=== PATIENT | female | born 1970 | race Hispanic/Latino ===

== ENCOUNTER 2016-11-07 10:20 | Emergency (ER) | payer OTHER ==
[2016-11-07 10:23] VITALS: BMI 42.9
[2016-11-07 10:29] VITALS: RESP 18; TEMP 97.8
[2016-11-07] MEDS ORDERED: Sodium Chloride 0.9% 1,000 ML IV STA (10:52)
--- NOTE | 2016-11-07 10:52 | ED PDOC ---
Arrival/HPI - General Historian: Patient - History of Present Illness Time/Duration: 1 week Symptom Course: Unchanged, Worsening Quality: Other Context: Home - General Chief Complaint: Back Pain Time Seen by Provider: 11/07/16 10:47 - History of Present Illness Narrative History of Present Illness (Text): 11/07/16 10:48 A 46 year old female, whose past medical history includes kidney stones 2 years ago, presents to the emergency department complaining of left lower back pain for 1 week. Patient states she was seen by her PMD last week and started on Cipro to treat a UTI. Patient has been compliant with medication, with no relief. She reports her symptoms have worsened since. Patient notes generalized weakness and fatigue but denies any fever, chills, nausea, vomiting, diarrhea, abdominal pain, urinary symptoms, chest pain, shortness of breath or any other complaints. (Lorna Olmos) Past Medical History - Provider Review Nursing Documentation Reviewed: Yes - Infectious Disease Hx of Infectious Diseases: None - Tetanus Immunization Tetanus Immunization: Unknown - Past Medical History Past Medical History: No Previous - Cardiac Hx Cardiac Disorders: Yes Hx Angina: No Hx Cardiac Arrhythmia: No Hx Circulatory Problems: No Hx Congestive Heart Failure: No Hx Heart Murmur: No Hx Heart Transplant: No Hx Hypertension: Yes Hx Internal Defibrillator: No Hx Mitral Valve Prolapse: No Hx Pacemaker: No Hx Peripheral Edema: No Hx Peripheral Vascular Disease: No - Pulmonary Hx Respiratory Disorders: Yes Hx Asthma: No Hx Bronchitis: Yes Hx Chronic Obstructive Pulmonary Disease (COPD): No Hx Emphysema: No Hx Pneumonia: No Hx Respiratory Aspiration: No Hx Respiratory Tract Infection: No Hx Sleep Apnea: No Hx Tuberculosis: No - Neurological Hx Neurological Disorder: Yes Hx Alzheimer's Disease: No HX Cerebrovascular Accident: No Hx Dementia: No Hx Dizziness: No Hx Meningitis: No Hx Migraine: No Hx Parkinson's Disease: No Hx Seizures: No Hx Transient Ischemic Attacks (TIA): No - HEENT Hx HEENT Disorder: Yes Hx Blind: No Hx Cataracts: No Hx Deafness: Yes (slight hearing loss) Hx Difficulty Chewing: No Hx Epistaxis: No Hx Glaucoma: No Hx Macular Degeneration: No - Renal Hx Renal Disorder: Yes Hx Dialysis: No Hx Kidney Stones: Yes (HAD KIDNEY STENT PLACED AND REMOVED) Hx Neurogenic Bladder: No Hx Pyelonephritis: No Hx Renal Cancer: No Hx Renal Failure: No - Endocrine/Metabolic Hx Endocrine Disorders: No Hx Adrenal Cancer: No Hx Diabetes Insipidus: No Hx Diabetes Mellitus Type 1: No Hx Diabetes Mellitus Type 2: No Hx Hyperthyroidism: No Hx Hypothyroidism: No Hx Systemic Lupus Erythematosus: No - Hematological/Oncological Hx Blood Disorders: No Hx AIDS: No Hx Anemia: No Hx Cancer: No Hx Chemotherapy: No Hx Cirrhosis: No Hx Hemophilia: No Hx Hepatitis A: No Hx Hepatitis B: No Hx Hepatitis C: No Hx Metastasis: No Hx Shingles: No Hx Sickle Cell Disease: No Hx Unexplained Bleeding: No - Integumentary Hx Dermatological Disorder: Yes (skin rashes) Hx Basal Cell Carcinoma: No Hx Eczema: No Hx Melanoma: No Hx Psoriasis: No Hx Squamous Cell Carcinoma: No - Musculoskeletal/Rheumatological Hx Musculoskeletal Disorders: No Hx Arthritis: No Hx Back Pain: No Hx Degenerative Joint Disease: No Hx Falls: No Hx Fractures: No Hx Gout: No Hx Herniated Disk: No Hx Myasthenia Gravis: No Hx Osteoarthritis: No Hx Osteomyelitis: No Hx Osteoporosis: No Hx Rhabdomyolysis: No Hx Spinal Stenosis: No Hx Unsteady Gait: No - Gastrointestinal Hx Gastrointestinal Disorders: Yes Hx Colostomy: No Hx Crohn's Disease: No Hx Diverticulitis: No Hx Gall Bladder Disease: Yes (CHOLECYSTECTOMY) Hx Gastroesophageal Reflux: No Hx Gastrointestinal Ulcer: No Hx Ileostomy: No Hx Liver Failure: No Hx Pancreatitis: No HX Swallowing Problems: No - Genitourinary/Gynecological Hx Genitourinary Disorders: Yes Hx Hematuria: Yes (current) Hx Incontinence: No Hx Prostate Problems: No Hx Sexually Transmitted Diseases: No Hx Urinary Tract Infection: Yes - Psychiatric Hx Psychophysiologic Disorder: Yes Hx Anxiety: Yes Hx Bipolar Disorder: No Hx Depression: Yes Hx Emotional Abuse: No Hx Hallucinations: No Hx Panic Disorder: Yes Hx Post Traumatic Stress Disorder: No Hx Psychosis: No Hx Physical Abuse: No Hx Schizophrenia: No Hx Sexual Abuse: No Hx Substance Use: No Other/Comment: SMOKES CIGARETTES - Past Surgical History Past Surgical History: No Previous - Surgical History Hx Amputation: No Hx Appendectomy: Yes Hx Cardiac Catheterization: No Hx Cholecystectomy: Yes Hx Coronary Stent: No Hx Gastric Bypass Surgery: No Hx Hysterectomy: No Hx Joint Replacement: No Hx Kidney Transplant: No Hx Liver Transplant: No Hx Mastectomy: No Hx Musculoskeletal Surgery: No Hx Open Heart Surgery: No Hx Orthopedic Surgery: No Hx Splenectomy: No Hx Valve Replacement: No - Anesthesia Hx Anesthesia: Yes Hx Anesthesia Reactions: No Hx Malignant Hyperthermia: No Family/Social History - Physician Review Nursing Documentation Reviewed: Yes Family/Social History: No Known Family HX Smoking Status: Heavy Smoker > 10 Cigarettes Daily Hx Alcohol Use: No Hx Substance Use: No Hx Substance Use Treatment: No Allergies/Home Meds Allergies/Adverse Reactions: Allergies zolpidem tartrate [From Ambien] Allergy (Verified 08/29/15 20:04) RASH Home Medications: Home Meds Medication Instructions Recorded Confirmed Venlafaxine [Effexor 50 MG TAB] 50 mg PO HS 08/29/15 11/07/16 Ciprofloxacin [Cipro] 1 tab PO BID 11/07/16 11/07/16 Review of Systems - Physician Review All systems were reviewed & negative as marked: Yes - Review of Systems Constitutional: absent: Fevers, Night Sweats Respiratory: absent: SOB Cardiovascular: absent: Chest Pain Gastrointestinal: absent: Abdominal Pain, Diarrhea, Nausea, Vomiting Genitourinary Female: absent: Dysuria, Frequency, Hematuria, Urine Output Changes Musculoskeletal: Other (Left flank pain) Physical Exam Vital Signs Reviewed: Yes Temperature: Afebrile Blood Pressure: Normal Pulse: Regular Respiratory Rate: Normal Appearance: Positive for: Well-Appearing, Non-Toxic, Comfortable Pain Distress: None Mental Status: Positive for: Alert and Oriented X 3 - Systems Exam Head: Present: Atraumatic, Normocephalic Pupils: Present: PERRL Extroacular Muscles: Present: EOMI Conjunctiva: Present: Normal Mouth: Present: Moist Mucous Membranes Neck: Present: Normal Range of Motion Respiratory/Chest: Present: Clear to Auscultation, Good Air Exchange. No: Respiratory Distress, Accessory Muscle Use Cardiovascular: Present: Regular Rate and Rhythm, Normal S1, S2. No: Murmurs Abdomen: Present: Normal Bowel Sounds. No: Tenderness, Distention, Peritoneal Signs Back: Present: Normal Inspection Upper Extremity: Present: Normal Inspection. No: Cyanosis, Edema Lower Extremity: Present: Normal Inspection. No: Edema Neurological: Present: GCS=15, CN II-XII Intact, Speech Normal Skin: Present: Warm, Dry, Normal Color. No: Rashes Psychiatric: Present: Alert, Oriented x 3, Normal Insight, Normal Concentration Vital Signs Temp Pulse Resp BP Pulse Ox 11/07/16 14:39 80 18 136/50 L 11/07/16 12:20 76 18 102/64 96 11/07/16 10:29 97.8 F 83 18 127/77 97 Medical Decision Making Re-evaluation Time: 14:00 Reassessment Condition: Re-examined, Improved - Lab Interpretations I have reviewed the lab results: Yes ED Course and Treatment: I was available for consultation during PA evaluation. The chart was reviewed by me, and I agree with disposition. The documented history was done by the physician floor covering printer. The documented physical exam was done by the physician floor covering printer. The documented procedures were done by the physician floor covering printer. (Yan Muhammad) 11/07/16 10:48 Impression: A 46 year old female with left flank pain. Patient denies any urinary symptoms. Plan includes CT no contrast, labs, fluids and pain management. Differential Diagnosis included but are not limited to: Renal stones vs. Pyelonephritis vs. UTI vs. Back pain Plan: -- Abdomen and pelvis CT -- Labs -- Toradol and IV fluids -- Urine culture and Urinalysis -- Reassess and disposition Progress Notes: 11/07/16 14:00 Re-evaluation. Patient feels better. Discussed results and plan with patient who expresses understanding. All questions answered and there is agreement with the plan to discharge home with instructions. Patient stable for discharge. Return if symptoms persist or worsen. (Lorna Olmos) - Lab Interpretations Microbiology Results: Microbiology Results 11/07/16 11:25 Urine Urine Culture - Final No Growth (<1,000 CFU/ML) Lab Results: 11/07/16 11:00 11/07/16 11:00 Lab Results 11/07/16 11:25: Urine Color Yellow, Urine Appearance Clear, Urine pH 5.5, Ur Specific [place] >= 1.030, Urine Protein Negative, Urine Glucose (UA) Negative, Urine Ketones Negative, Urine Blood Small H, Urine Nitrate Negative, Urine Bilirubin Negative, Urine Urobilinogen 0.2, Ur Leukocyte Esterase Negative, Urine RBC 1 - 3, Urine WBC 0 - 2, Ur Epithelial Cells 3 - 4, Urine Bacteria Small 11/07/16 11:00: Sodium 136, Potassium 4.0, Chloride 103, Carbon Dioxide 23, Anion Gap 14, BUN 15, Creatinine 0.6, Est GFR ( Amer) > 60, Est GFR (Non- Af Amer) > 60, Random Glucose 131 H, Calcium 9.3, Total Bilirubin 0.5, AST 25, ALT 27, Alkaline Phosphatase 85, Total Protein 7.2, Albumin 4.2, Globulin 3.0, Albumin/Globulin Ratio 1.4 11/07/16 11:00: WBC 11.6 H D, RBC 4.66, Hgb 13.9, Hct 41.0, MCV 88.0, MCH 29.8, MCHC 33.9, RDW 14.0, Plt Count 314, MPV 9.8, Gran % 77.1 H, Lymph % (Auto) 16.9 L, [place] % (Auto) 4.2, Eos % (Auto) 1.5, Baso % (Auto) 0.3, Gran # 8.97 H, Lymph # 2.0, [place] # 0.5, Eos # 0.2, Baso # 0.03 - RAD Interpretation Narrative RAD Interpretations (Text): 11/07/16 13:52 Accession No. : [id number] Patient Name / ID : CATRINA JOHANSEN / [id number] Exam Date : 11/07/2016 12:28:32 ( Approved ) Study Comment : Sex / Age : F / 46Y Creator : Galindo Elizabeth MD Dictator : Galindo Elizabeth MD [employer] : Evening Sitter : Galindo Elizabeth MD Approver2 : Report Date : 11/07/2016 13:00:27 My Comment : PROCEDURE: CT abdomen pelvis 10/30/2016 HISTORY: Left-sided eft flank pain COMPARISON: Comparison made with prior study 01/22/2017 TECHNIQUE: Contiguous helical/transaxial images of the abdomen and pelvis. Oral contrast was administered. No IV contrast given. Coronal and Sagittal reformats generated. Radiation dose: Total exam DLP = 1722.91 mGy-cm. This CT exam was performed using one or more of the following dose reduction techniques: Automated exposure control, adjustment of the mA and/or kV according to patient size, and/or use of iterative reconstruction technique. . FINDINGS: LOWER THORAX: Lung bases are clear. No infiltrate effusion or basilar pneumothorax. The heart size is within range of normal. No significant pericardial effusion. . There is a small hiatal hernia with slight wall thickening of the esophagus that could be due to protrusion of gastric mucosa. Esophagitis not excluded. LIVER: Liver exhibits relatively normal size measuring 16.8 cm in CC dimension. No obvious hepatic mass collection or calcification. GALLBLADDER AND BILE DUCTS: Status post cholecystectomy again noted with metallic surgical clips in the gallbladder fossa. No gross intra or extrahepatic biliary ductal dilatation. PANCREAS: The pancreas appears slightly atrophic and fatty replaced. No pancreatic mass collection or calcification. SPLEEN: Spleen exhibits normal size and attenuation pattern without mass collection or calcification ADRENALS: No adrenal lesions KIDNEYS AND URETERS: The kidneys exhibit relatively symmetric size. Mild infiltration changes are seen in the perinephric fat bilaterally nonspecific. No definitive evidence obstructing nephrolithiasis. Previously noted right UPJ calculus no longer seen. Right-sided hydronephrosis resolved. BLADDER: Urinary bladder is incompletely distended which may in part account for thick- walled appearance. Possibility of a cystitis must be considered. REPRODUCTIVE: Uterus and adnexal structures grossly unremarkable. APPENDIX: The appendix is not seen and there are multiple metallic clips are present within the right lower quadrant of the abdomen possibly related to prior appendectomy as per history. . Is not seen BOWEL: Evaluation of the bowel is limited due to the lack of oral contrast. Stomach is incompletely distended which may account for slight thick-walled appearance. Rule out gastritis. Visualized loops of small bowel exhibit normal contour and caliber. No evidence of acute mechanical small bowel obstruction. Stool and air seen throughout the colon. No evidence of definitive abnormal mural wall thickening. PERITONEUM: Unremarkable. No fluid collection. No free air. Small fat containing umbilical hernia LYMPH NODES: Unremarkable. No enlarged lymph nodes. VASCULATURE: No evidence of abdominal aortic or iliac artery aneurysms. BONES: No osseous structures appear intact. Minor degenerative spondylosis lower thoracic and lumbar spine. OTHER FINDINGS: None. IMPRESSION: No evidence of obstructing nephrolithiasis. Previously noted small right UPJ calculus on prior examination is no longer visible there has been interval resolution of right side hydronephrosis. Minor infiltration changes seen within the perinephric fat bilaterally - nonspecific. Mild wall thickening of the urinary bladder could be due to incomplete distention however cystitis must be excluded. Clinic correlation with urinalysis. Status post cholecystectomy and appendectomy. Small fat containing umbilical hernia. (Lorna Olmos) Radiology Orders: 11/07/16 10:51 ABD & PELVIS W/O PO OR IV CONT [CT] Stat - Medication Orders Current Medication Orders: Discontinued Medications Sodium Chloride (Sodium Chloride 0.9%) 1,000 mls @ 999 mls/hr IV .Q1H1M STA Stop: 11/07/16 11:52 Last Admin: 11/07/16 11:20 Dose: 999 mls/hr Ketorolac Tromethamine (Toradol) 15 mg IVP STAT STA Stop: 11/07/16 10:53 Last Admin: 11/07/16 11:21 Dose: 15 mg Re-Assess: JOSÉ Pain Assessment Document 11/07/16 12:21 NH (Rec: 11/07/16 12:40 [id number]) Pain Reassessment Is this a pain reassessment? Yes Sleep Is patient sleeping during reassessment? No Presence of Pain Presence of Pain Yes Pain Scale Used Pain Scale Used Numeric Location Left, Right or Bilateral Left Upper or Lower Lower Pain Location Body Site Back Description Description Dull Intensity of Pain at present 5 Acceptable Level of Pain 2 Alleviating Factors Medication Nitrofurantoin Macrocrystals (Macrobid) 100 mg PO STAT STA Stop: 11/07/16 14:01 Last Admin: 11/07/16 14:32 Dose: 100 mg Phenazopyridine HCl (Pyridium) 200 mg PO STAT STA Stop: 11/07/16 14:06 Last Admin: 11/07/16 14:32 Dose: 200 mg - Scribe Statement The provider has reviewed the documentation as recorded by the Scribe - Scribe Statement Bree Garza Provider Scribe Attestation: All medical record entries made by the Scribe were at my direction and personally dictated by me. I have reviewed the chart and agree that the record accurately reflects my personal performance of the history, physical exam, medical decision making, and the department course for this patient. I have also personally directed, reviewed, and agree with the discharge instructions and disposition. (Lorna Olmos) Disposition/Present on Arrival - Present on Arrival Any Indicators Present on Arrival: No History of DVT/PE: No History of Uncontrolled Diabetes: No Urinary Catheter: No History of Decub. Ulcer: No History Surgical Site Infection Following: None - Disposition Have Diagnosis and Disposition been Completed?: Yes Disposition Time: 14:01 Patient Plan: Discharge - Disposition Diagnosis: Acute cystitis, Back pain Disposition: HOME/ ROUTINE Condition: IMPROVED Discharge Instructions (ExitCare): Urinary Tract Infection in Men (ED) Additional Instructions: Call private doctor for follow up visit in 1-2 days. Take medication as instructed with food. Return to emergency if symptoms worsen or develop fever. Review urine culture in 2-3 days with your doctor Prescriptions: Nitrofurantoin Macrocrystals [Macrobid] 100 mg PO BID #14 cap Phenazopyridine HCl [Pyridium] 200 mg PO TID #9 tablet Referrals: PCP,NO [Primary Care Provider] - Follow up with primary Kathy Ruby MD [Staff Provider] - Follow up with primary Forms: Wire (Maltese)
[2016-11-07 11:18] LABS: ALB/GLOB RATIO 1.4 (1.1-1.8); ALBUMIN 4.2 g/dL (3.0-4.8); ALT/SGPT 27 U/L (7-56); AST/SGOT 25 U/L (15-39); BASO # 0.03 K/mm3 (0.0-2.0); BASO % 0.3 % (0.0-3.0); BLOOD UREA NITROGEN 15 mg/dL (7-21); CALCIUM 9.3 mg/dL (8.4-10.5); EOS # 0.2 (0.0-0.7); EOS % 1.5 % (1.5-5.0); GFR AFRICAN-AMERICAN > 60; GFR NON-AFRICAN AMERICAN > 60; GRAN # 8.97 (1.4-6.5); GRAN % 77.1 % (50.0-68.0); HEMOGLOBIN 13.9 gm/dL (12.0-16.0); LYMPH % 16.9 % (22.0-35.0); MEAN CORPUSCULAR HEMOGLOBIN 29.8 pg (25.0-35.0); MEAN CORPUSCULAR HGB CONC 33.9 g/dl (31.0-37.0); MEAN PLATELET VOLUME 9.8 fl (7.0-11.0); MONO # 0.5 (0.1-0.6); MONO % 4.2 % (1.0-6.0); PLATELET COUNT 314 10^3/uL (120.0-450.0); RBC 4.66 10^6/uL (3.5-6.1); WHITE BLOOD COUNT 11.6 10^3/ul (4.5-11.0)
[2016-11-07 11:47] LABS: PH,URINE 5.5 (4.7-8.0); URINE BILIRUBIN NEGATIVE (NEGATIVE); URINE BLOOD SMALL (NEGATIVE); URINE GLUCOSE (UA) NEGATIVE (NEGATIVE); URINE LEUKOCYTE ESTERASE NEGATIVE Leu/uL (NEGATIVE); URINE NITRATE NEGATIVE (NEGATIVE); URINE PROTEIN NEGATIVE mg/dL (<30 mg/dL); URINE UROBILINOGEN 0.2 E.U./dL (<1 E.U./dL)
[2016-11-07 11:49] LABS: URINE APPEARANCE CLEAR (CLEAR); URINE COLOR YELLOW (YELLOW)
[2016-11-07 11:54] LABS: URINE BACTERIA SMALL (NEG); URINE WBC 0 - 2 /hpf (0-6)
--- NOTE | 2016-11-07 13:02 | CT ---
PROCEDURE: CT abdomen pelvis 10/30/2016 HISTORY: Left-sided eft flank pain COMPARISON: Comparison made with prior study 01/22/2017 TECHNIQUE: Contiguous helical/transaxial images of the abdomen and pelvis. Oral contrast was administered. No IV contrast given. Coronal and Sagittal reformats generated. Radiation dose: Total exam DLP = 1722.91 mGy-cm. This CT exam was performed using one or more of the following dose reduction techniques: Automated exposure control, adjustment of the mA and/or kV according to patient size, and/or use of iterative reconstruction technique. . FINDINGS: LOWER THORAX: Lung bases are clear. No infiltrate effusion or basilar pneumothorax. The heart size is within range of normal. No significant pericardial effusion. . There is a small hiatal hernia with slight wall thickening of the esophagus that could be due to protrusion of gastric mucosa. Esophagitis not excluded. LIVER: Liver exhibits relatively normal size measuring 16.8 cm in CC dimension. No obvious hepatic mass collection or calcification. GALLBLADDER AND BILE DUCTS: Status post cholecystectomy again noted with metallic surgical clips in the gallbladder fossa. No gross intra or extrahepatic biliary ductal dilatation. PANCREAS: The pancreas appears slightly atrophic and fatty replaced. No pancreatic mass collection or calcification. SPLEEN: Spleen exhibits normal size and attenuation pattern without mass collection or calcification ADRENALS: No adrenal lesions KIDNEYS AND URETERS: The kidneys exhibit relatively symmetric size. Mild infiltration changes are seen in the perinephric fat bilaterally nonspecific. No definitive evidence obstructing nephrolithiasis. Previously noted right UPJ calculus no longer seen. Right-sided hydronephrosis resolved. BLADDER: Urinary bladder is incompletely distended which may in part account for thick-walled appearance. Possibility of a cystitis must be considered. REPRODUCTIVE: Uterus and adnexal structures grossly unremarkable. APPENDIX: The appendix is not seen and there are multiple metallic clips are present within the right lower quadrant of the abdomen possibly related to prior appendectomy as per history. . Is not seen BOWEL: Evaluation of the bowel is limited due to the lack of oral contrast. Stomach is incompletely distended which may account for slight thick-walled appearance. Rule out gastritis. Visualized loops of small bowel exhibit normal contour and caliber. No evidence of acute mechanical small bowel obstruction. Stool and air seen throughout the colon. No evidence of definitive abnormal mural wall thickening. PERITONEUM: Unremarkable. No fluid collection. No free air. Small fat containing umbilical hernia LYMPH NODES: Unremarkable. No enlarged lymph nodes. VASCULATURE: No evidence of abdominal aortic or iliac artery aneurysms. BONES: No osseous structures appear intact. Minor degenerative spondylosis lower thoracic and lumbar spine. OTHER FINDINGS: None. IMPRESSION: No evidence of obstructing nephrolithiasis. Previously noted small right UPJ calculus on prior examination is no longer visible there has been interval resolution of right side hydronephrosis. Minor infiltration changes seen within the perinephric fat bilaterally - nonspecific. Mild wall thickening of the urinary bladder could be due to incomplete distention however cystitis must be excluded. Clinic correlation with urinalysis. Status post cholecystectomy and appendectomy. Small fat containing umbilical hernia.
[2016-11-07 13:31] VITALS: O2SAT 96
[2016-11-07] MEDS ORDERED: cefTRIAXone 1 gm 1 GM/100 ML BAG IVPB STA (13:51)
[2016-11-07 14:40] VITALS: BP 136/50; PULSE 80
== END 2016-11-07 14:35 | disposition home or self-care (01) ==
LOC: ED 10:20
DX: N30.00 Acute cystitis without hematuria (principal); M54.5 Low back pain; I10 Essential (primary) hypertension; F17.210 Nicotine dependence, cigarettes, uncomplicated
CPT/HCPCS: 74176; 80053; 81001; 81025; 85025; 87086; 96374; 99283; J1885; J7040

== ENCOUNTER 2018-05-29 12:27 | Outpatient (CLI) | payer OTHER | END 2018-05-29 12:28 | disposition home or self-care (01) | LOC: RAD 12:27 ==